=== PATIENT | female | born 1995 | race Caucasian/White ===

== ENCOUNTER 2020-01-16 11:55 | Emergency (ER) | payer MEDICAID, SELFPAY ==
[2020-01-16 11:57] VITALS: BP 136/80; PULSE 80; RESP 18; TEMP 36.4; O2SAT 100; BMI 37.3
--- NOTE | 2020-01-16 12:18 | CT_ITS ---
STUDY: CT ABDOMEN AND PELVIS WITH CONTRAST REASON FOR EXAM: Female, 24 years old. 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 RADIATION DOSAGE (If Supplied By Facility): CTDIvol = ( 17.68 ) mGy, DLP = ( 1136.59 ) mGycm TECHNIQUE: Transaxial images were obtained from the dome of the diaphragm to the symphysis pubis with oral contrast. Oral and amp; IV Gastrografin and amp; 100mL Isovue-300 was administered. Sagittal and coronal images were reconstructed. Individualized dose optimization techniques were used for this CT. COMPARISON: None. FINDINGS: The visualized lung bases are unremarkable. The visualized portions of the heart are within normal limits. Normal liver. Normal gallbladder and extrahepatic biliary system. Normal spleen. Normal pancreas. Normal bilateral adrenal glands. Normal right kidney. Normal left kidney. Normal visualized stomach. Normal small intestine. Nondistended colon. The appendix is visualized and appears normal with lumen partially air-filled. Normal abdominal aorta. Normal inferior vena cava. Normal retroperitoneum. Normal urinary bladder. Normal visualized uterus. There is a 3.5 x 4.4 cm cyst of the right adnexa. Slight amount of free fluid extending to the right lower abdomen, contiguous with the right adnexa. Normal abdominal wall. Normal osseous structures. CT/Abdomen/Pelvis WITH Contrast IMPRESSION: 3.5 x 4.4 cm right ovarian cyst with mild adjacent free fluid. Pelvic ultrasound recommended. Electronically Signed: Gilbert Larry MD (Brooks) at 14:37 EDT , Service support ,
--- NOTE | 2020-01-16 12:27 | ED.DCSUM_ITS ---
- ER Visit Summary Date of Service: 01/16/20 Chief Complaint: Abdominal pain History of Present Illness: The patient is a 24 F who presents with abdominal pain that began approximately 2 hours prior to arrival. Patient states the pain began suddenly. Patient states the pain is over the right lower quadrant area. Patient states the pain is worse with walking and improves with rest. Patient states her pain has improved since she arrived in the emergency department. Patient denies any nausea or vomiting. Patient denies any melena or hematochezia. Patient states she has been having some watery diarrhea over the past 2 days. Patient denies any dysuria or hematuria. Patient states her last menstrual period was 1 week ago and was normal. 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 Physical Examination: Vital signs are stable. Patient is afebrile. Patient is in no acute distress. Oral mucosa is pink and moist. Neck is supple. Trachea is midline. There is no JVD. Heart was regular rate and rhythm. Lungs are clear and equal bilaterally. Abdomen is soft. Bowel sounds are normal. There is lower abdominal tenderness bilaterally. There is no rebound or guarding noted. Cranial nerves II through XII are intact. There are no focal motor or sensory deficits noted. Extremities are intact. There is no calf tenderness or edema. Test Results: CBC, comprehensive metabolic profile, and serum hCG were obtained were all normal. Urinalysis was obtained and was normal. CT scan of the abdomen and pelvis was obtained. There is a 3.5 x 4.4 cm right ovarian cyst with mild adjacent free fluid. Pelvic ultrasound was recommended. This was ordered and is pending. Emergency Department Course and Treatment: Patient was given IV fluids, morphine, and Zofran. Patient was feeling better on reevaluation. Disposition: Care of the patient was turned over to the oncoming physician pending ultrasound results. Impression: 1. Right ovarian cyst This note was generated with [employer] dictation software. It may contain incorrect words, spelling, and punctuation that were not noted in review of the chart prior to signing ED Disposition - Plan for ED Patient: Disposition: Home or Assisted Living Diagnosis: Ovarian cyst Instructions: ED Cyst Ovarian Referrals: BERONICA MORRIS [Other] - 5-7 Days Lorraine Parker DO [STAFF PHYSICIAN] - 3-5 Days
[2020-01-16 12:36] LABS: Absolute Lymphocyte Count 1.48 X10^3/uL (0.83-4.51); Absolute Neutrophil Count 5.7 X10^3/uL (2.0-7.7); Basophil# 0.02 X10^3/uL; Basophil% 0.3 % (0-1); Eosinophil# 0.04 X10^3/uL; Eosinophils% 0.5 % (0-5); Hematocrit 42.4 % (37-47); Hemoglobin 13.6 g/dL (12.0-15.0); Lymphocyte # 1.48 X10^3/ul (4.0); Lymphocyte % 18.9 % (19-41); Mean Corp Hgb Conc 32.1 g/dL (32-36); Mean Corpuscular Hgb 28.2 pg (27.0-32.0); Mean Corpuscular Volume 87.8 fL (81-99); Mean Platelet Vol. 10.6 fl (6.2-12.0); Monocyte# 0.53 X10^3/uL; Monocyte% 6.8 % (0-10); NRBC Flagged by Analyzer 0 % (0-5); Neutrophil # 5.74 X10^3/uL (2.7-7.7); Platelet Count 259 K/mm3 (150-450); RBC Distribution Width CV 12.9 % (11.6-14.6); RBC Distribution Width SD 41.8 fl (35.1-43.9); Red Blood Count 4.83 M/mm3 (4.2-5.4); White Blood Count 7.9 K/mm3 (4.4-11.0)
[2020-01-16] MEDS: 0.9% Normal Saline 1,000 ML 1000 ML IV (12:41)
[2020-01-16] MEDS: Morphine 4 MG/ML Syringe IV (12:41)
[2020-01-16] MEDS: Ondansetron 4 MG/2 ML Vial IV (12:51)
[2020-01-16 12:54] LABS: ALB/GLOB Ratio 1.1 RATIO (0.9-2.4); AST(SGOT) 11 U/L (15-37); Alanine Aminotransfer ALT/SGPT 19 U/L (13-56); Albumin, Serum 4.3 g/dL (3.2-5.0); Alkaline Phosphatase 60 U/L (45-117); Anion Gap 5 (5-15); BUN 10 mg/dL (7-18); BUN/Creat Ratio 12.5 RATIO (10-20); Calcium,Total 9.1 mg/dL (8.5-10.1); Chloride 106 mmol/L (98-107); EST Glomerular Filtration Rate 94 mL/min (>60); Est Glom Filt Rate - Afr Amer 114 mL/min (>60); Estimated Creatinine Clearance 90.47 ml/min; Globulin 3.9 g/dL (2.2-4.2); Glucose 96 mg/dL (74-106); Potassium 3.9 mmol/L (3.5-5.1); Protein, Total 8.2 g/dL (6.4-8.2); Sodium Level 138 mmol/L (136-145)
[2020-01-16 13:04] LABS: Internal QC Validated? YES +Cl - CLEAR BKGD; Pregnancy, Serum, hCG Quali. NEGATIVE Negative
[2020-01-16 13:23] LABS: Bacteria 0 SEEN /hpf (None Seen); Mucous, Urine 0 SEEN /hpf (<or=2+); Red Blood Cells-Urine 0 SEEN /hpf (0-5); Squamous Epithelial Cells - UA 0 SEEN /hpf (5-10); White Blood Cells 0 SEEN /hpf (0-5)
[2020-01-16 13:27] LABS: Color, Urine Yellow (Yellow); Glucose, Dipstick Normal (Normal); Ketone-Dipstick Negative (Negative); Leukocyte Esterase-Dipstick Negative /ul (Negative); Nitrite-Dipstick Negative (Negative); Occult Blood-Urine Negative /ul (Negative); Protein-Dipstick Negative (Negative); Urine Bilirubin Dipstick Negative (Negative); Urine Clarity Sl. Cloudy (Clear); Urine Urobilinogen Normal (Normal)
[2020-01-16 14:23] VITALS: RESP 16
--- NOTE | 2020-01-16 14:34 | US_ITS ---
STUDY: ULTRASOUND OF THE FEMALE PELVIS - COMPLETE REASON FOR EXAM: Female, 24 years old. PAIN , ABNL CT LMP: 01/03/2020 TECHNIQUE: Transabdominal and Transvaginal TECHNICAL QUALITY: Adequate. COMPARISON: CT from earlier today FINDINGS: The uterus is anteverted and is in a midline position. The uterus measures 9.5 x 5.5 x 4.5 cm. Normal uterine cervix. The endometrium measures 8 mm in thickness, and is hyperechoic. There is no demonstrated endometrial mass. There is no demonstrated myometrial mass. I.U.D. - The patient does not have an I.U.D. The right ovary is visualized. The right ovary measures 6.5 x 5.0 x 3.7 cm. Hypoechoic cyst of the right ovary measures 3.1 x 3.6 x 2.5 cm There is no visualized right adnexal mass or complex lesion. There is normal arterial and normal venous vascularity. The left ovary is visualized. The left ovary measures 2.3 x 2.4 x 2.4 cm. There is no left ovarian cyst or ovarian mass. There is no visualized left adnexal mass or complex lesion. There is normal arterial and normal venous vascularity. There is minimal fluid in the cul-de-sac. Visualized urinary bladder is unremarkable. US/Transvaginal Non- IMPRESSION: 1. No sonographic evidence of ovarian torsion. 3.6 cm right hypoechoic cyst likely represents a hemorrhagic cyst. Trace pelvic free fluid. Electronically Signed: Gilbert Larry MD (Brooks) at 15:45 EDT , Service support ,
--- NOTE | 2020-01-16 16:01 | ED.DCSUM_ITS ---
- ER Visit Summary Date of Service: 01/16/20 The patient was checked out to me with a pelvic ultrasound pending. Test Results: Clinical Impression(s) from Imaging Studies Abdomen/Pelvis CT 01/16/20 12:18 IMPRESSION: 3.5 x 4.4 cm right ovarian cyst with mild adjacent free fluid. Pelvic ultrasound recommended. Electronically Signed: Gilbert Larry MD (Brooks) at 14:37 EDT , Service support , Transvaginal US 01/16/20 14:34 IMPRESSION: 1. No sonographic evidence of ovarian torsion. 3.6 cm right hypoechoic cyst likely represents a hemorrhagic cyst. Trace pelvic free fluid. Electronically Signed: Gilbert Larry MD (Brooks) at 15:45 EDT , Service support , Emergency Department Course and Treatment: Hemoglobin is normal. The patient is resting comfortably. I feel that she is a suitable candidate for outpatient follow-up. Treatment Plan: Patient be discharged instructions follow-up with Dr. Lorraine Parker in 3 to 5 days. Return to the emergency department for any worsening symptoms. Disposition: To home in improved and stable condition. Impression: 1. Right ovarian cyst. This note was generated with [employer] software. It may contain incorrect words, spelling, and punctuation that were not noted in review of the chart prior to signing ED Disposition - Plan for ED Patient: Disposition: Home or Assisted Living Diagnosis: Ovarian cyst Instructions: ED Cyst Ovarian Referrals: BERONICA MORRIS [Other] - 5-7 Days Lorraine Parker DO [STAFF PHYSICIAN] - 3-5 Days
== END 2020-01-16 16:16 | disposition home or self-care (01) ==
PROVIDERS: Emergency Provider Emergency Medicine
DX: N83.201 Unspecified ovarian cyst, right side (principal)
CPT/HCPCS: 74177; 76830; 80053; 81001; 84703; 85025; 93976; 96361; 96374; 96375; 99283; J7030; Q9967; A4216; J2405

== ENCOUNTER 2020-07-07 18:44 | Emergency (ER) | payer MEDICAID, SELFPAY ==
[2020-07-07 18:45] VITALS: BP 124/72; PULSE 78; RESP 15; TEMP 36.4; O2SAT 100; BMI 35.6
--- NOTE | 2020-07-07 18:53 | CT_ITS ---
INDICATION: llq pain EXAMINATION: CT ABDOMEN AND PELVIS WITH CONTRAST - CT Abdomen And Pelvis W/ Contrast Injection TECHNIQUE: Helically acquired images were obtained of the abdomen and pelvis following IV contrast. A radiation dose optimization technique was used for this scan. IV Contrast dosage and agent: Oral contrast: None. COMPARISON: 01/16/2020 FINDINGS: LOWER CHEST: Lung bases are clear. No cardiomegaly or pericardial effusion. LIVER: Homogeneous. No focal mass. GALLBLADDER AND BILIARY TREE: No calcified gallstones. Contracted thick-walled possibly physiologic.. No intra- or extrahepatic biliary ductal dilation. PANCREAS: No focal cystic or solid mass. SPLEEN: Normal size without focal cystic or solid mass. ADRENAL GLANDS: No nodules. KIDNEYS AND URETERS: Normal renal size and position. No hydronephrosis. PERITONEUM: No ascites or free air. No other fluid collection. BOWEL: No evidence of acute appendicitis. No evidence for small bowel obstruction. Diffusely a haustral descending colon of indeterminate etiology possibly on the basis of old inflammatory disease however clinical correlation is recommended No focal inflammatory change. LYMPH NODES: No enlarged mesenteric or retroperitoneal lymph nodes. VESSELS: Aorta is non-dilated. URINARY BLADDER: Incompletely distended thick-walled bladder likely of no significance. REPRODUCTIVE ORGANS: No pelvic masses. ABDOMINAL WALL: No discrete abdominal or pelvic wall hernia. BONES: No lytic or blastic abnormality. CT/Abdomen/Pelvis W IV Cont ONLY IMPRESSION: Contracted thick-walled gallbladder without calcified stones likely physiologic.. Diffusely a haustral descending colon without stranding in the fat possibly on the basis of old inflammatory bowel disease however clinical correlation is recommended. Electronically Signed: Alexis Tse MD at 21:04 EDT , Service support ,
--- NOTE | 2020-07-07 18:55 | ED.DCSUM_ITS ---
History of Present Illness Chief Complaint: Chest Pain Informant: Patient Onset: Days Context: Gradual Onset Timing: Intermittent Current Severity: Moderate Maximum Severity: Moderate Narrative: Patient is a 24-year-old female medical history significant for prior ovarian cyst that presents to the emergency department with multiple complaints. Patient states over the past few days, she has had intermittent pain in her left lower quadrant. She states today she was at work and lifting, the pain got acutely worse. She states that she was mildly nauseated. She states also for the past week, she has been having intermittent heart pain. She states sometimes, she will feel short of breath. She denies fever. She denies chills or sweats. She denies any other systemic complaints. She denies vaginal bleeding or transfer . She has had prior cystoscopy for ovarian cyst. Prior similar symptoms: Yes Recent Illness/Hospitalization: No Past Medical History - Allergies and Home Meds Allergies/Adverse Reactions: Allergies No Known Allergies Allergy (Verified 07/07/20 18:46) Primary Care Physician: David Wilks MD [STAFF PHYSICIAN] - Prior records reviewed: Yes Past Medical History: - - Prior ovarian cyst Surgical History: noncontributory Smoking Status: Never smoker Review of Systems General: Denies: Chills, Fever, Sweats Eyes: Denies: Visual changes - bilaterally, Diplopia ENT: Denies: Rhinorrhea, Sore throat Cardiovascular: Denies: Chest pain, Palpitations Respiratory: Denies: Dyspnea, Cough, Dyspnea on exertion Gastrointestinal: Reports: Nausea. Denies: Abdominal pain, Vomiting, Diarrhea, Melena, Hematochezia Genitourinary: Denies: Dysuria, Hematuria, Frequency Musculoskeletal: Denies: Back pain, Extremity Pain Skin: Denies: Rash, Wounds Neurological: Denies: Headache, Weakness, Numbness Physical Exam Vital Signs/Narrative: Vital Signs Temp Pulse Resp BP Pulse Ox 07/07/20 18:45 97.6 F L 78 15 124/72 H 100 Inital Vital Signs reviewed: Yes General: Well nourished, Well developed, No Acute Distress Head: Normocephalic, Atraumatic Eyes: Perrl, EOMI ENT: Moist mucous membranes, No rhinorrhea Neck: Supple, Nontender Cardiovascular: Regular rate, Regular rhythm, No murmurs Respiratory: No distress, CTA bilaterally, Chest nontender Abdomen: Soft, Nontender, Nondistended, Normal bowel sounds Back: Nontender, Normal Inspection Extremities: Nontender, No edema Skin: Normal color, No rash Neurological: Alert, Oriented x3, Cranial nerves II-XII grossly intact, Normal Strength, Normal Sensation Psychological: Normal affect, Normal Mood Diagnostic/Tx/Re-eval Abnormal Lab Results 07/07/20 07/07/20 07/07/20 19:15 19:15 19:15 WBC 7.8 RBC 4.78 Hgb 13.7 Hct 43.1 MCV 90.2 MCH 28.7 MCHC 31.8 L RDW Std Deviation 43.3 RDW Coeff of Marek 13.1 Plt Count 283 MPV 11.0 Immature Gran % (Auto) 0.300 Neut % (Auto) 61.6 Lymph % (Auto) 30.0 [place] % (Auto) 6.7 Eos % (Auto) 1.0 Baso % (Auto) 0.4 Absolute Neuts (auto) 4.8 Absolute Lymphs (auto) 2.33 Nucleated RBC % 0 Sodium 140 Potassium 3.4 L Chloride 107 Carbon Dioxide 28.0 Anion Gap 5 BUN 16 Creatinine 0.79 Estim Creat Clear Calc 95.64 Est GFR (MDRD) Af Amer 116 Est GFR (MDRD) Non-Af 96 BUN/Creatinine Ratio 20.4 H Glucose 81 Calcium 9.3 Total Bilirubin 0.50 AST 14 L ALT 24 Alkaline Phosphatase 58 Total Protein 8.4 H Albumin 4.4 Globulin 4.0 Albumin/Globulin Ratio 1.1 Lipase 74 Serum , Qual NEGATIVE Urine Color Urine Clarity Urine pH Ur Specific [place] Urine Protein Urine Glucose (UA) Urine Ketones Urine Occult Blood Urine Nitrite Urine Bilirubin Urine Urobilinogen Ur Leukocyte Esterase Urine RBC Urine WBC Ur Squamous Epith Cells Amorphous Sediment Urine Bacteria Urine Mucus 07/07/20 19:15 WBC RBC Hgb Hct MCV MCH MCHC RDW Std Deviation RDW Coeff of Marek Plt Count MPV Immature Gran % (Auto) Neut % (Auto) Lymph % (Auto) [place] % (Auto) Eos % (Auto) Baso % (Auto) Absolute Neuts (auto) Absolute Lymphs (auto) Nucleated RBC % Sodium Potassium Chloride Carbon Dioxide Anion Gap BUN Creatinine Estim Creat Clear Calc Est GFR (MDRD) Af Amer Est GFR (MDRD) Non-Af BUN/Creatinine Ratio Glucose Calcium Total Bilirubin AST ALT Alkaline Phosphatase Total Protein Albumin Globulin Albumin/Globulin Ratio Lipase Serum , Qual Urine Color Yellow Urine Clarity Clear Urine pH 7.0 Ur Specific [place] 1.015 Urine Protein Negative Urine Glucose (UA) Normal Urine Ketones 50 H Urine Occult Blood Negative Urine Nitrite Negative Urine Bilirubin Negative Urine Urobilinogen 1 H Ur Leukocyte Esterase Negative Urine RBC 0 SEEN Urine WBC 0 SEEN Ur Squamous Epith Cells 0-5 SEEN Amorphous Sediment 1+ PHOS Urine Bacteria 0 SEEN Urine Mucus 0 SEEN Clinical Impression(s) from Imaging Studies Abdomen/Pelvis CT 07/07/20 18:53 IMPRESSION: Contracted thick-walled gallbladder without calcified stones likely physiologic.. Diffusely a haustral descending colon without stranding in the fat possibly on the basis of old inflammatory bowel disease however clinical correlation is recommended. Electronically Signed: Alexis Tse MD at 21:04 EDT , Service support , - Rhythm Strip Rhythm Strip: Sinus Rhythm Rate: 80 Ectopy: None - EKG Initial EKG Interpretation: Sinus Rhythm, No Acute Injury Pattern Prior: Unchanged - Medical Decision Making The patient presents with abdominal cramping, pain in the left lower quadrant that waxes and wanes, along with intermittent chest pain and nausea. Broad metabolic work-up was pursued. EKG was obtained. Was sinus rhythm without acute ischemia. Labs were obtained were unremarkable. Urine shows no evidence of infection. The patient underwent CT imaging. This was reviewed by myself and the radiologist. CT shows some questionable inflammation of the descending colon. The patient has had some diarrhea with abdominal cramping. Patient was given fluids, Zofran, and Toradol. She is resting comfortably. At this point, with her cramping and mild inflammation on CT, will treat with 3 days of Cipro. The patient also reports that she had a near syncopal episode at work last week and has been complaining of palpitations. She will be given outpatient cardiology follow-up. She was counseled on outpatient follow-up and reasons to return. She will be discharged home. Impression 1. Abdominal cramping ED Disposition - Plan for ED Patient: Instructions: ED Chest Pain, Noncardiac, ED Gastroenteritis, Bacterial (Adult) Prescriptions: Dicyclomine HCl [Bentyl] 20 mg PO TIDAC #20 capsule Prescription Printed Ciprofloxacin [Cipro] 500 mg PO BID #6 tab Prescription Printed Referrals: David Wilks MD [STAFF PHYSICIAN] -
--- NOTE | 2020-07-07 18:55 | EKG12_ITS ---
Test Reason : CP Blood Pressure : / mmHG Vent. Rate : 067 BPM Atrial Rate : 067 BPM P-R Int : 118 ms QRS Dur : 086 ms QT Int : 416 ms P-R-T Axes : 017 060 008 degrees QTc Int : 439 ms Normal sinus rhythm Normal ECG Confirmed by ANURAG ROCHA, HUGO ([id number]), mapping editor SUNNY HODGSON ([id number]) on 07/10/2020 10:36:28 A M Referred By: SIMEON Confirmed By:BERNADINE OSBORN MD
--- NOTE | 2020-07-07 18:58 | ED.RN ---
NO OLDS EKGS IN MUSE
[2020-07-07] MEDS: Ondansetron 4 MG/2 ML Vial IV (19:15)
[2020-07-07] MEDS: 0.9% Normal Saline 1,000 ML 1000 ML IV (19:15)
[2020-07-07 19:26] LABS: Bacteria 0 SEEN /hpf (None Seen); Mucous, Urine 0 SEEN /hpf (<or=2+); Red Blood Cells-Urine 0 SEEN /hpf (0-5); White Blood Cells 0 SEEN /hpf (0-5)
[2020-07-07 19:27] LABS: Color, Urine Yellow (Yellow); Glucose, Dipstick Normal (Normal); Ketone-Dipstick 50 mg/dl (Negative); Leukocyte Esterase-Dipstick Negative /ul (Negative); Nitrite-Dipstick Negative (Negative); Occult Blood-Urine Negative /ul (Negative); Protein-Dipstick Negative (Negative); Specific Gravity, Urine 1.015 (1.002-1.030); Urine Bilirubin Dipstick Negative (Negative); Urine Clarity Clear (Clear); Urine Urobilinogen 1 mg/dl (Normal)
[2020-07-07 19:30] LABS: Absolute Lymphocyte Count 2.33 X10^3/uL (0.83-4.51); Absolute Neutrophil Count 4.8 X10^3/uL (2.0-7.7); Basophil# 0.03 X10^3/uL; Basophil% 0.4 % (0-1); Eosinophil# 0.08 X10^3/uL; Hematocrit 43.1 % (37-47); Hemoglobin 13.7 g/dL (12.0-15.0); Lymphocyte # 2.33 X10^3/ul (4.0); Mean Corp Hgb Conc 31.8 g/dL (32-36); Mean Corpuscular Hgb 28.7 pg (27.0-32.0); Mean Corpuscular Volume 90.2 fL (81-99); Monocyte# 0.52 X10^3/uL; Monocyte% 6.7 % (0-10); NRBC Flagged by Analyzer 0 % (0-5); Neutrophil # 4.78 X10^3/uL (2.7-7.7); Neutrophil % 61.6 % (47-70); Platelet Count 283 K/mm3 (150-450); RBC Distribution Width CV 13.1 % (11.6-14.6); RBC Distribution Width SD 43.3 fl (35.1-43.9); Red Blood Count 4.78 M/mm3 (4.2-5.4); White Blood Count 7.8 K/mm3 (4.4-11.0)
[2020-07-07 19:46] LABS: Internal QC Validated? YES +Cl - CLEAR BKGD; Pregnancy, Serum, hCG Quali. NEGATIVE Negative
[2020-07-07 19:52] LABS: ALB/GLOB Ratio 1.1 RATIO (0.9-2.4); AST(SGOT) 14 U/L (15-37); Alanine Aminotransfer ALT/SGPT 24 U/L (13-56); Albumin, Serum 4.4 g/dL (3.2-5.0); Alkaline Phosphatase 58 U/L (45-117); Anion Gap 5 (5-15); BUN 16 mg/dL (7-18); BUN/Creat Ratio 20.4 RATIO (10-20); Calcium,Total 9.3 mg/dL (8.5-10.1); Chloride 107 mmol/L (98-107); Creatinine, Serum 0.79 mg/dL (0.55-1.02); EST Glomerular Filtration Rate 96 mL/min (>60); Est Glom Filt Rate - Afr Amer 116 mL/min (>60); Estimated Creatinine Clearance 95.64 ml/min; Glucose 81 mg/dL (74-106); Lipase 74 U/L (73-393); Potassium 3.4 mmol/L (3.5-5.1); Protein, Total 8.4 g/dL (6.4-8.2); Sodium Level 140 mmol/L (136-145)
[2020-07-07] MEDS: Ketorolac 30 MG/ML Syringe IV (19:52)
[2020-07-07 20:09] LABS: Amorphous Sediment 1+ PHOS; Squamous Epithelial Cells - UA 0-5 SEEN /hpf (5-10)
[2020-07-07 21:05] VITALS: RESP 14
[2020-07-07 21:14] VITALS: PULSE 78; RESP 16; O2SAT 98
== END 2020-07-07 21:15 | disposition home or self-care (01) ==
PROVIDERS: Emergency Provider Emergency Medicine
DX: R10.32 Left lower quadrant pain (principal)
CPT/HCPCS: 74177; 80053; 81001; 83690; 84703; 85025; 93005; 96361; 96374; 96375; 99283; J7030; Q9967; A4216; J2405

== ENCOUNTER 2020-07-10 09:56 | Emergency (ER) | payer MEDICAID, SELFPAY ==
[2020-07-10 09:57] VITALS: BP 130/94; PULSE 65; RESP 16; TEMP 35.3; O2SAT 97; BMI 37.0
[2020-07-10] MEDS: Ketorolac 15 MG/ML Vial IV (10:25)
[2020-07-10] MEDS: Ondansetron 4 MG/2 ML Vial IV (10:25)
[2020-07-10] MEDS: 0.9% Normal Saline 1,000 ML 1000 ML IV (10:27)
[2020-07-10 10:39] LABS: Absolute Lymphocyte Count 1.55 X10^3/uL (0.83-4.51); Absolute Neutrophil Count 3.8 X10^3/uL (2.0-7.7); Basophil# 0.02 X10^3/uL; Basophil% 0.3 % (0-1); Eosinophil# 0.07 X10^3/uL; Eosinophils% 1.2 % (0-5); Hemoglobin 13.5 g/dL (12.0-15.0); Lymphocyte # 1.55 X10^3/ul (4.0); Lymphocyte % 26.5 % (19-41); Mean Corp Hgb Conc 31.4 g/dL (32-36); Mean Corpuscular Hgb 28.6 pg (27.0-32.0); Mean Corpuscular Volume 91.1 fL (81-99); Mean Platelet Vol. 10.7 fl (6.2-12.0); Monocyte# 0.37 X10^3/uL; Monocyte% 6.3 % (0-10); NRBC Flagged by Analyzer 0 % (0-5); Neutrophil # 3.82 X10^3/uL (2.7-7.7); Neutrophil % 65.5 % (47-70); Platelet Count 250 K/mm3 (150-450); RBC Distribution Width CV 13.2 % (11.6-14.6); Red Blood Count 4.72 M/mm3 (4.2-5.4); White Blood Count 5.8 K/mm3 (4.4-11.0)
[2020-07-10 10:57] LABS: ALB/GLOB Ratio 1.1 RATIO (0.9-2.4); AST(SGOT) 15 U/L (15-37); Alanine Aminotransfer ALT/SGPT 22 U/L (13-56); Albumin, Serum 4.3 g/dL (3.2-5.0); Alkaline Phosphatase 57 U/L (45-117); Anion Gap 4 (5-15); BUN 10 mg/dL (7-18); BUN/Creat Ratio 11.9 RATIO (10-20); Calcium,Total 9.4 mg/dL (8.5-10.1); Chloride 109 mmol/L (98-107); Creatinine, Serum 0.84 mg/dL (0.55-1.02); EST Glomerular Filtration Rate 88 mL/min (>60); Est Glom Filt Rate - Afr Amer 107 mL/min (>60); Estimated Creatinine Clearance 86.16 ml/min; Globulin 3.8 g/dL (2.2-4.2); Glucose 93 mg/dL (74-106); Lipase 61 U/L (73-393); Potassium 3.7 mmol/L (3.5-5.1); Protein, Total 8.1 g/dL (6.4-8.2); Sodium Level 140 mmol/L (136-145)
--- NOTE | 2020-07-10 11:11 | ED.DCSUM_ITS ---
- ER Visit Summary Date of Service: 07/10/20 Chief Complaint: Abdominal pain History of Present Illness: The patient is a [address] Morris. 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 She is never had a colonoscopy or endoscopy. She reports she is listed abdominal pain began 1 to 2 weeks ago. Is a sharp, aching pain that started 10 at worst and 710 currently. Is worsened by food and relieved by nothing. She denies nausea or vomiting. She has had one episode of diarrhea yesterday. No blood in her stools or black tarry stools. No dysuria or frequency. Patient's last menstrual period was 5 days ago. She denies any vaginal bleeding or discharge. Patient reports that she was seen in the [facility] department 3 days ago and placed on 3 days of Cipro. She has 1 dose left and is concerned that she needs more antibiotics. Physical Examination: Vitals: Stable. Afebrile. General: Well-nourished and well-developed. Head: Normocephalic atraumatic. Neck: Supple, no lymphadenopathy. No JVD. Nontender. Cardiovascular: Regular rate and rhythm. No murmurs. Respiratory: No respiratory distress. Clear to auscultation bilaterally. Abdominal: Soft, mild tenderness palpation of the left upper quadrant, nondistended, normal bowel sounds. No guarding, rebound, or peritoneal signs. Back: Mild left CVA tenderness. Extremities: Nontender, no edema. Skin: Normal color, no rash. Neurologic: Alert and oriented ?3. Cranial nerves II through XII are intact. Normal strength and sensation. Psych: Normal affect. Test Results: CBC is normal. Chem-7 shows a chloride of 109. LFTs are normal. Lipase is 61. Urinalysis shows leukocyte Estrace. Emergency Department Course and Treatment: Patient had an IV placed. She is given Toradol and Zofran IV. She is resting comfortably. Reviewed the CAT scan from 3 days ago. It shows loss of how struck in her descending colon and raises the possibility of old inflammatory bowel disease. Patient denies any diagnosis of inflammatory bowel disease. She does report she has irritable bowel disease. She denies any family history of Crohn's or ulcerative colitis. Treatment Plan: At this point I do not think the patient needs further antibio tics. She will be given a prescription for Bentyl and Zofran. However, I do think that she should follow up to have a colonoscopy. She is given the name of Dr. Culver who is on-call. Instructed to follow-up with her primary care physician Dr. Morris in 3 to 5 days if not improving. Return to the emergency department for any worsening symptoms. Disposition: To home in improved and stable condition. Impression: 1. Abdominal pain, uncertain cause. This note was generated with [employer] dictation software. It may contain incorrect words, spelling, and punctuation that were not noted in review of the chart prior to signing ED Disposition - Plan for ED Patient: Instructions: ED Abdominal Pain Unkn Cause Fem Prescriptions: Dicyclomine HCl [Bentyl] 20 mg PO TIDAC #20 capsule Ondansetron [Zofran Odt] 4 mg PO Q8H PRN PRN #10 tablet PRN Reason: Nausea Referrals: BERONICA MORRIS [Other] - 3-5 Days Romie Culver MD [STAFF PHYSICIAN] - 1-2 Weeks
[2020-07-10 11:17] LABS: Bacteria 0 SEEN /hpf (None Seen); Red Blood Cells-Urine 0 SEEN /hpf (0-5)
[2020-07-10 11:18] LABS: Color, Urine Yellow (Yellow); Glucose, Dipstick Normal (Normal); Ketone-Dipstick Negative (Negative); Leukocyte Esterase-Dipstick 25 /ul (Negative); Nitrite-Dipstick Negative (Negative); Occult Blood-Urine Negative /ul (Negative); Protein-Dipstick Negative (Negative); Specific Gravity, Urine 1.015 (1.002-1.030); Urine Bilirubin Dipstick Negative (Negative); Urine Clarity Clear (Clear); Urine Urobilinogen Normal (Normal); Urine pH 6.5 (5.0 - 8.0)
[2020-07-10 11:25] LABS: Mucous, Urine 1+ /hpf (<or=2+); Squamous Epithelial Cells - UA 0-5 SEEN /hpf (5-10); White Blood Cells 0-5 SEEN /hpf (0-5)
[2020-07-10 11:35] VITALS: BP 95/61; PULSE 59; RESP 16
== END 2020-07-10 11:37 | disposition home or self-care (01) ==
LOC: ED 10:43
PROVIDERS: Emergency Provider Emergency Medicine
DX: R10.9 Unspecified abdominal pain (principal); M54.9 Dorsalgia, unspecified; R19.7 Diarrhea, unspecified; M79.7 Fibromyalgia
CPT/HCPCS: 80053; 81001; 83690; 85025; 99283; J7030; A4216; J2405

== ENCOUNTER 2020-11-20 11:38 | Emergency (ER) | payer MEDICAID, SELFPAY ==
[2020-11-20 11:39] VITALS: BP 137/96; PULSE 81; RESP 16; TEMP 36.4; O2SAT 100; BMI 35.7
--- NOTE | 2020-11-20 12:03 | CT_ITS ---
EXAM DESCRIPTION: CT scan of the abdomen and pelvis CLINICAL HISTORY: 25 years Female, blood in stool COMPARISON: Previous CT scan of the abdomen and pelvis obtained on 07/07/2020 TECHNIQUE: A CT scan of the abdomen and pelvis was performed initially without than with IV contrast contrast administration. Oral contrast was also administered. Coronal and sagittal reconstruction images were reviewed. This exam was performed according to our departmental dose-optimization program, which includes automated exposure control, adjustment of the mA and/or kV according to patient size and/or use of iterative reconstruction technique. FINDINGS: The lung bases and the base of the heart are normal. The liver is normal.The spleen is normal.The adrenal glands are normal.The head, body, and tail of the pancreas are normal. The right and left kidneys were examined and appear to be normal. Both ureters appear to be normal, and no obstructive uropathy is identified. The abdominal aortal is normal along its course and distribution. No paraortic lymphadenopathy is seen. No abdominal masses or lesions are seen. The CT scan of the pelvis was then reviewed. The common iliac vessels, external iliac vessels, and common femoral vessels are normal along their course and distribution No pelvis masses or lesions are seen. The appendix is normal. No pericecal inflammatory reaction is seen. Bone scanning windows of the lumbar spine and pelvis were reviewed in the coronal and sagittal planes and appear to be normal. CT/Abdomen/Pelvis W IV Cont ONLY IMPRESSION: Normal CT scan of the abdomen and pelvis. Electronically Signed: Chau Stockton DO at 13:49 EDT Tel , Service support ,
--- NOTE | 2020-11-20 12:04 | ED.VIS.GI ---
HPI HPI - GI History of Present Illness Chief Complaint: GI Bleed Informant: patient Narrative Narrative: Patient presents with rectal bleeding today. This patient has not had any significant rectal bleeding in the past. However, she states she has had stomach and GI issues her whole life. When she is researched online she think she likely has Crohn's disease. No family history of Crohn's but she does not know a lot of her family members. She had an episode of abdominal cramping back earlier this year. Was seen a couple times for that. Diagnosed with a nonspecific colitis. She had been on antibiotics for short period of time. She did have a follow-up colonoscopy about 2 months ago. However, in between her initial visit and the colonoscopy she went on a gluten-free diet. This did seem to help her symptoms. Since her colonoscopy was normal, she went off the gluten-free diet and the symptoms do seem to have increased. However, the bleeding is still new. Only abdominal surgery is cystoscopy. No new medications. For the last month or so she is also been having intermittent nausea. She has not had vomiting for over 2 days. She is not sure if she is lost weight. No specific food seems to bother her but she does seem to have a lot of GI upset with eating. PFSH PFSH Home Medications glycopyrrolate 1 mg PO TID 11/20/20 [History Last Taken Unknown] sumatriptan succinate 50 mg PO Q2H PRN 11/20/20 [History Last Taken Unknown] Allergy/AdvReac Type Severity Reaction Status Date / Time No Known Allergies Allergy Verified 11/20/20 11:38 Surgical History H/O partial cystectomy Social History Smoking Status: Never smoker ROS ROS ED Constitutional Constitutional ED: Denies chills, fever(s) or sweats ENT ENT ED: Denies sore throat Cardiovascular Cardiovascular: Denies chest pain Respiratory/Chest Respiratory/Chest: Denies cough or dyspnea Gastrointestinal Gastrointestinal: Reports abdominal pain, diarrhea, nausea, vomiting and other Details: See history of present illness. ; Denies melena Genitourinary Genitourinary ED: Denies dysuria or hematuria Musculoskeletal Musculoskeletal: Denies arthralgias, back pain or myalgias Integumentary Denies rash Neurologic Neurologic: Denies headache(s) Hematologic/Lymphatic Hematologic/Lymphatic: Denies easy bleeding or easy bruising EXAM Physical Exam Const Vital Signs: 11/20/20 11:39 Temperature 97.5 F L Temperature Source Temporal Pulse Rate 81 Respiratory Rate 16 Blood Pressure 137/96 H Blood Pressure Mean 109 Pulse Ox 100 Oxygen Delivery Method Room Air Positive well nourished and well developed General Appearance ED: well developed HEENT Reports moist mucous membranes normocephalic and atraumatic Eyes General Eye ED: Negative for pale conjunctiva or scleral icterus Neck supple Resp normal respiratory effort and clear to auscultation bilaterally Cardio regular rate, regular rhythm and no murmurs GI non-tender and non-distended Auscultation: normoactive bowel sounds Palpation: soft Back/Spine no CVA tenderness Extremity full ROM General Extremety ED: Negative for edema General Extremity: Negative for edema Neuro Sensorium / Orientation: alert Psych mental status grossly normal Skin Lesions: no lesions Rashes: no rashes MDM MDM MDM Narrative Medical decision making narrative: Patient is blood work including CBC with hemoglobin electrolytes liver function test are negative. CT scan does not show any acute process this time. I did rectal exam with Angeline RN in attendance. There is a small skin tag at the 6 o'clock position. There is no active bleeding though. No mass. No sign of infection. I think the patient is okay to go home. She will follow up with GI. Lab Data Attestation: I reviewed the patient's lab results. Labs: Laboratory Results - last 24 hr 11/20/20 11/20/20 11/20/20 12:16 12:16 12:16 WBC 5.6 RBC 4.34 Hgb 12.3 Hct 39.3 MCV 90.6 MCH 28.3 MCHC 31.3 L RDW Std Deviation 42.1 RDW Coeff of Marek 12.7 Plt Count 242 MPV 10.6 Immature Gran % (Auto) 0.400 Neut % (Auto) 65.2 Lymph % (Auto) 25.4 [place] % (Auto) 7.4 Eos % (Auto) 1.1 Baso % (Auto) 0.5 Absolute Neuts (auto) 3.6 Absolute Lymphs (auto) 1.41 Nucleated RBC % 0 Sodium 138 Potassium 3.6 Chloride 107 Carbon Dioxide 27.0 Anion Gap 4 L BUN 8 Creatinine 0.60 Estim Creat Clear Calc 119.60 Est GFR (MDRD) Af Amer 159 Est GFR (MDRD) Non-Af 132 BUN/Creatinine Ratio 13.4 Glucose 88 Calcium 8.7 Total Bilirubin 0.50 AST 12 L ALT 18 Alkaline Phosphatase 49 Total Protein 7.2 Albumin 3.9 Globulin 3.3 Albumin/Globulin Ratio 1.2 Serum , Qual NEGATIVE Radiography Diagnostic Testing: Radiology Impression Abdomen/Pelvis CT 11/20/20 12:03 IMPRESSION: Normal CT scan of the abdomen and pelvis. Electronically Signed: Chau Stockton DO at 13:49 EDT Tel , Service support , Discharge Plan Triage Chief Complaint: GI Bleed ED Provider: Rayray Jc Dx/Rx/DC Orders Clinical Impression: Rectal bleeding Instructions: ED Lower GI Bleeding (Stable) Prescriptions: No Action glycopyrrolate 1 mg Tablet 1 mg PO TID RF: 0 sumatriptan succinate 50 mg Tablet 50 mg PO Q2H PRN (Reason: Migraine Headache) RF: 0 Referrals: BERONICA MORRIS [Other] - 3-5 Days Disposition Disposition: Home, Self Care
[2020-11-20] MEDS: 0.9% Normal Saline 1,000 ML 500 ML IV (12:18)
[2020-11-20 12:23] LABS: Absolute Lymphocyte Count 1.41 X10^3/uL (0.83-4.51); Absolute Neutrophil Count 3.6 X10^3/uL (2.0-7.7); Basophil# 0.03 X10^3/uL; Basophil% 0.5 % (0-1); Eosinophil# 0.06 X10^3/uL; Eosinophils% 1.1 % (0-5); Hematocrit 39.3 % (37-47); Hemoglobin 12.3 g/dL (12.0-15.0); Lymphocyte # 1.41 X10^3/ul (0.83-4.51); Lymphocyte % 25.4 % (19-41); Mean Corp Hgb Conc 31.3 g/dL (32-36); Mean Corpuscular Hgb 28.3 pg (27.0-32.0); Mean Corpuscular Volume 90.6 fL (81-99); Mean Platelet Vol. 10.6 fl (6.2-12.0); Monocyte# 0.41 X10^3/uL; Monocyte% 7.4 % (0-10); NRBC Flagged by Analyzer 0 % (0-5); Neutrophil # 3.62 X10^3/uL (2.7-7.7); Neutrophil % 65.2 % (47-70); Platelet Count 242 K/mm3 (150-450); RBC Distribution Width CV 12.7 % (11.6-14.6); RBC Distribution Width SD 42.1 fl (35.1-43.9); Red Blood Count 4.34 M/mm3 (4.2-5.4); White Blood Count 5.6 K/mm3 (4.4-11.0)
[2020-11-20 12:38] LABS: ALB/GLOB Ratio 1.2 RATIO (0.9-2.4); AST(SGOT) 12 U/L (15-37); Alanine Aminotransfer ALT/SGPT 18 U/L (13-56); Albumin, Serum 3.9 g/dL (3.2-5.0); Alkaline Phosphatase 49 U/L (45-117); Anion Gap 4 (5-15); BUN 8 mg/dL (7-18); BUN/Creat Ratio 13.4 RATIO (10-20); Calcium,Total 8.7 mg/dL (8.5-10.1); Chloride 107 mmol/L (98-107); EST Glomerular Filtration Rate 132 mL/min (>60); Est Glom Filt Rate - Afr Amer 159 mL/min (>60); Globulin 3.3 g/dL (2.2-4.2); Glucose 88 mg/dL (74-106); Potassium 3.6 mmol/L (3.5-5.1); Protein, Total 7.2 g/dL (6.4-8.2); Sodium Level 138 mmol/L (136-145)
[2020-11-20 12:52] LABS: Internal QC Validated? YES +Cl - CLEAR BKGD; Pregnancy, Serum, hCG Quali. NEGATIVE Negative
== END 2020-11-20 15:06 | disposition home or self-care (01) ==
PROVIDERS: Emergency Provider Emergency Medicine
DX: K62.5 Hemorrhage of anus and rectum (principal); L91.8 Other hypertrophic disorders of the skin
CPT/HCPCS: 74177; 80053; 84703; 85025; 96360; 96361; 99283; Q9967; A4216

== ENCOUNTER → 2022-09-26 | Outpatient (CLI) | payer MEDICAID, SELFPAY ==
[2022-09-26 14:13] LABS: Hematocrit 37.9 % (37-47); Hemoglobin 11.9 g/dL (12.0-15.0); Mean Corp Hgb Conc 31.4 g/dL (32-36); Mean Corpuscular Hgb 28.5 pg (27.0-32.0); Mean Corpuscular Volume 90.7 fL (81-99); Mean Platelet Vol. 11.1 fl (6.2-12.0); Platelet Count 207 K/mm3 (150-450); RBC Distribution Width SD 46.1 fl (35.1-43.9); Red Blood Count 4.18 M/mm3 (4.2-5.4); White Blood Count 8.4 K/mm3 (4.4-11.0)
[2022-09-26 14:46] LABS: Glucose Challenge Gest 1H 50g 120 mg/dL (70-140)
[2022-09-26 15:11] LABS: Syphilis Antibodies Non-reactive
== END | disposition home or self-care (01) ==
PROVIDERS: Visit Provider Obstetrics & Gynecology
DX: Z34.83 Encounter for supervision of other normal pregnancy, third trimester (principal)
CPT/HCPCS: 36415; 82950; 85027; 86780

== ENCOUNTER → 2022-10-24 | Outpatient (CLI) | payer MEDICAID, SELFPAY ==
[2022-10-24 13:03] LABS: Absolute Lymphocyte Count 1.16 X10^3/uL (0.83-4.51); Absolute Neutrophil Count 6.1 X10^3/uL (2.0-7.7); Basophil# 0.02 X10^3/uL; Basophil% 0.2 % (0-1); Eosinophil# 0.07 X10^3/uL; Eosinophils% 0.9 % (0-5); Hematocrit 37.9 % (37-47); Hemoglobin 12.2 g/dL (12.0-15.0); Lymphocyte # 1.16 X10^3/ul (0.83-4.51); Lymphocyte % 14.4 % (19-41); Mean Corp Hgb Conc 32.2 g/dL (32-36); Mean Corpuscular Hgb 28.4 pg (27.0-32.0); Mean Corpuscular Volume 88.1 fL (81-99); Mean Platelet Vol. 11.5 fl (6.2-12.0); Monocyte# 0.61 X10^3/uL; Monocyte% 7.5 % (0-10); NRBC Flagged by Analyzer 0 % (0-5); Neutrophil # 6.14 X10^3/uL (2.7-7.7); Platelet Count 244 K/mm3 (150-450); RBC Distribution Width CV 14.5 % (11.6-14.6); RBC Distribution Width SD 45.9 fl (35.1-43.9); White Blood Count 8.1 K/mm3 (4.4-11.0)
== END | disposition home or self-care (01) ==
LOC: WOBLAB 11:27
PROVIDERS: Visit Provider Obstetrics & Gynecology
DX: Z34.83 Encounter for supervision of other normal pregnancy, third trimester (principal); Z36.85 Encounter for antenatal screening for Streptococcus B
CPT/HCPCS: 36415; 85025; 87081

== ENCOUNTER 2022-10-31 16:15 | Outpatient (CLI) | payer MEDICAID, SELFPAY ==
[2022-10-31 16:29] VITALS: PULSE 112; TEMP 37.1; O2SAT 96
[2022-10-31 16:30] VITALS: BP 132/72; PULSE 110
[2022-10-31 17:52] VITALS: BMI 43.0
--- NOTE | 2022-10-31 23:08 | OB.TRI.NOTE ---
HPI - General General Date of Service: 10/31/22 HPI Narrative ALEJANDRO AMBROSE, is a 27 F who presents with contractions PFSH PFSH Home Medications glycopyrrolate 1 mg tablet 1 mg PO TID 11/20/20 [History Last Taken Unknown] sumatriptan succinate 50 mg tablet 50 mg PO Q2H PRN Migraine Headache 11/20/20 [History Last Taken Unknown] Allergy/AdvReac Type Severity Reaction Status Date / Time No Known Allergies Allergy Verified 10/31/22 17:46 Surgical History H/O partial cystectomy Social History Smoking Status: Never smoker NST FHR Rate Baby A Baseline: 120 Variability:: Moderate Accelerations:: 15 x 15 Decelerations:: None NST Reactive:: Yes Uterine Activity:: Few contractions Assessment & Plan (1) : PLAN: Called by nursing patient with contractions at home initial cervical exam by nursing unchanged from office exam earlier today. Educated nursing to offer patient cervical exam versus okay to discharge home if comfortable, called back by nursing that patient desires repeat cervical exam. Repeat call by nursing patient now desires discharge home now not feeling contractions. Okay to discharge home and follow-up scheduled appointments
== END 2022-10-31 17:54 | disposition home or self-care (01) ==
LOC: WPOUT 16:24 → WP 16:26
PROVIDERS: Referring Provider Obstetrics & Gynecology; Visit Provider Obstetrics & Gynecology
DX: O47.9 False labor, unspecified (principal)
CPT/HCPCS: 36415; 59025; 59050; 80053; 82570; 83615; 84156; 85025; 87086; 87088

== ENCOUNTER → 2022-10-31 | Outpatient (CLI) | payer MEDICAID, SELFPAY ==
[2022-10-31 11:56] LABS: Absolute Lymphocyte Count 1.38 X10^3/uL (0.83-4.51); Absolute Neutrophil Count 6.5 X10^3/uL (2.0-7.7); Basophil# 0.03 X10^3/uL; Basophil% 0.3 % (0-1); Eosinophil# 0.08 X10^3/uL; Eosinophils% 0.9 % (0-5); Hematocrit 38.7 % (37-47); Hemoglobin 12.1 g/dL (12.0-15.0); Lymphocyte # 1.38 X10^3/ul (0.83-4.51); Lymphocyte % 15.9 % (19-41); Mean Corp Hgb Conc 31.3 g/dL (32-36); Mean Corpuscular Hgb 28.5 pg (27.0-32.0); Mean Corpuscular Volume 91.1 fL (81-99); Mean Platelet Vol. 11.4 fl (6.2-12.0); Monocyte# 0.61 X10^3/uL; NRBC Flagged by Analyzer 0 % (0-5); Neutrophil # 6.49 X10^3/uL (2.7-7.7); Neutrophil % 74.7 % (47-70); Platelet Count 210 K/mm3 (150-450); RBC Distribution Width CV 14.5 % (11.6-14.6); RBC Distribution Width SD 47.9 fl (35.1-43.9); Red Blood Count 4.25 M/mm3 (4.2-5.4); White Blood Count 8.7 K/mm3 (4.4-11.0)
[2022-10-31 12:16] LABS: ALB/GLOB Ratio 0.6 RATIO (0.9-2.4); AST(SGOT) 16 U/L (15-37); Alanine Aminotransfer ALT/SGPT 14 U/L (13-56); Albumin, Serum 2.8 g/dL (3.2-5.0); Alkaline Phosphatase 90 U/L (45-117); Anion Gap 9 (5-15); BUN 7 mg/dL (7-18); Chloride 108 mmol/L (98-107); Creatinine, Serum 0.64 mg/dL (0.55-1.02); EST Glomerular Filtration Rate 120 mL/min (>60); Est Glom Filt Rate - Afr Amer 145 mL/min (>60); Globulin 4.5 g/dL (2.2-4.2); Glucose 109 mg/dL (74-106); LDH 176 U/L (84-246); Potassium 3.8 mmol/L (3.5-5.1); Protein, Total 7.3 g/dL (6.4-8.2); Sodium Level 137 mmol/L (136-145)
[2022-10-31 12:17] LABS: Protein, Urine (Random) 9.4 mg/dL (<11.9); Protein:Creat Ratio 127 mg/g CRE (0-200)
== END | disposition home or self-care (01) ==
LOC: WOBLAB 11:31
PROVIDERS: Visit Provider Obstetrics & Gynecology
DX: Z34.83 Encounter for supervision of other normal pregnancy, third trimester (principal)
CPT/HCPCS: 36415; 80053; 82570; 83615; 84156; 85025; 87086

== ENCOUNTER 2022-11-11 06:50 | Inpatient (IN) | payer MEDICAID, SELFPAY ==
[2022-11-11] VITALS (67 sets, daily range): BP systolic 61–136; BP diastolic 38–80; PULSE 60–101; RESP 14; TEMP 36.1–37.1; O2SAT 81–100; BMI 43.0
--- NOTE | 2022-11-11 07:46 | HP.PCM.OB_ITS ---
History and Physical Date of Admission: 11/11/22 HPI: 27-year-old at 39/3, DANNY 11/16/2019 3 x 8-week ultrasound, admitted for elective induction of labor at term. Denies regular contractions, leaking of fluid, vaginal bleeding. Reports movement. Denies headache or vision changes, chest pain or shortness of breath, nausea or vomiting, diarrhea constipation, fevers or chills. 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 Ovarian cystectomies in 2013 and 2018 Medications: 1. vitamin Allergies: No known drug allergies Family history: Denies history of blood clots or bleeding disorders Social history: Denies tobacco, alcohol, drug use Review of system: Negative otherwise stated above Physical exam: Vitals pending General: No acute distress HEENT: Normal cephalic/atraumatic, PERRLA Cardiorespiratory: No increased effort Abdomen: Soft, nontender, gravid Extremities: Minimal edema Musculoskeletal: Strength out of 5 throughout all extremities Neurologic: Cranial nerves II through XII grossly intact, no focal deficits Cervical exam: Pending Fever heart rate: 125/mod onelia/+accel/no decel [place]: quiet Assessment/plan: 27-year-old at 39/3, DANNY 11/16/2019 3 x 8-week ultrasound, admitted for elective induction of labor at term. complicated by: Obesity. ?Admit for induction of labor. Pitocin and AROM. ? GBS negative ? Epidural when patient desires
[2022-11-11] MEDS: Lactated Ringers 1,000 ML 50 ML IV (09:05)
[2022-11-11 09:28] LABS: Absolute Lymphocyte Count 1.47 X10^3/uL (0.83-4.51); Absolute Neutrophil Count 6.4 X10^3/uL (2.0-7.7); Basophil# 0.03 X10^3/uL; Basophil% 0.3 % (0-1); Eosinophil# 0.08 X10^3/uL; Eosinophils% 0.9 % (0-5); Hematocrit 34.8 % (37-47); Hemoglobin 10.8 g/dL (12.0-15.0); Lymphocyte # 1.47 X10^3/ul (0.83-4.51); Lymphocyte % 16.8 % (19-41); Mean Corpuscular Hgb 28.3 pg (27.0-32.0); Mean Corpuscular Volume 91.1 fL (81-99); Mean Platelet Vol. 11.3 fl (6.2-12.0); Monocyte# 0.72 X10^3/uL; Monocyte% 8.2 % (0-10); NRBC Flagged by Analyzer 0 % (0-5); Neutrophil # 6.37 X10^3/uL (2.7-7.7); Neutrophil % 72.8 % (47-70); Platelet Count 203 K/mm3 (150-450); RBC Distribution Width CV 14.6 % (11.6-14.6); Red Blood Count 3.82 M/mm3 (4.2-5.4); White Blood Count 8.8 K/mm3 (4.4-11.0)
[2022-11-11] MEDS: Oxytocin 15 Units/NS 250ml 15 UNITS/250 ML IV.SOLN 2 UNITS IV (09:30)
[2022-11-11] MEDS: Mag Hydrox/Al Hydrox/Simeth 30 ML UDC PO ×2 (10:15→17:02)
[2022-11-11 10:18] LABS: Syphilis Antibodies Non-reactive
[2022-11-11] MEDS: LACTATED RINGERS 500 ML 999 ML IV ×3 (12:30→17:23)
[2022-11-11] MEDS: fentaNYL-bupivacaine (epidural) 100 ML BAG EPIDURAL (14:04)
[2022-11-11] MEDS: Lactated Ringers 1,000 ML 200 ML IV (17:19)
[2022-11-11] MEDS: Amnioinfusion- 0.9% NS 1,000 ML IV.SOLN. 1000 ML INTRA-UTER (17:46)
--- NOTE | 2022-11-11 19:37 | EX.PCM.OBRPT ---
Maternal Data Information Final DANNY: 11/15/22 Vaginal Delivery Operative Information Date of Procedure: 11/11/22 Pre-Operative Diagnosis: Lopez intrauterine at term Post-Operative Diagnosis: Lopez intrauterine at term Surgery / Procedure Performed: Spontaneous Vaginal Delivery Type of Anesthesia: Epidural Estimated Blood Loss: 300cc Findings Description of Procedure: Spontaneous vaginal delivery viable infant male. Nuchal cord x1, loose, delivered through. Baby to mom. Cord clamped and cut. Spontaneous delivery of placenta. Second-degree laceration repaired in the usual fashion, hemostatic. There was a slight delay in starting to push due to inadequate staffing, heart rate tracing category 1 during the period of waiting to start pushing. A Gender: Male (1 minute): 10 (5 minute): 10 Complication Complications: None
[2022-11-11] MEDS: Oxytocin 15 Units/NS 250ml 15 UNITS/250 ML IV.SOLN 83 UNITS IV (20:05)
[2022-11-11] MEDS: Ibuprofen 600 MG Tablet PO (20:14)
[2022-11-12 03:45] VITALS: BP 118/59; PULSE 87; RESP 14; TEMP 36.3
[2022-11-12] MEDS: Ibuprofen 600 MG Tablet PO ×3 (04:40→16:41)
--- NOTE | 2022-11-12 04:54 | PN.OBGYN_ITS ---
Subjective Subjective Patient doing well. Lochia minimal. Sore and tired, however pain is controlled. Breast-feeding. Objective Data Objective Data Vital Signs: Vital Signs Temp Pulse Resp BP Pulse Ox O2 Del Method 97.3 F L 87 14 118/59 L 96 Room Air 11/12/22 03:45 11/12/22 03:45 11/12/22 03:45 11/12/22 03:45 11/11/22 21:27 11/12/22 03:45 Oxygen Delivery Method Room Air Weight: 112.1 kg Body Mass Index (BMI) 43.0 Intake & Output: Intake and Output for Last 24 Hours 11/10/22 11/11/22 11/12/22 23:59 23:59 23:59 Intake Total 3257.50 / 3257.50 Output Total 1250 / 1250 Balance 50 / Lab / Micro Data Attestation: I reviewed the patient's lab results. 11/11/22 09:05 Labs: Laboratory Results - last 24 hr 11/11/22 09:05: WBC 8.8, RBC 3.82 L, Hgb 10.8 L, Hct 34.8 L, MCV 91.1, MCH 28.3, MCHC 31.0 L, RDW Std Deviation 48.0 H, RDW Coeff of Marek 14.6, Plt Count 203, MPV 11.3, Immature Gran % (Auto) 1.000 H, Neut % (Auto) 72.8 H, Lymph % (Auto) 16.8 L, [place] % (Auto) 8.2, Eos % (Auto) 0.9, Baso % (Auto) 0.3, Absolute Neuts (auto) 6.4, Absolute Lymphs (auto) 1.47, Nucleated RBC % 0, Syphilis Total Ab Non- reactive, Blood Type O POSITIVE, Antibody Screen NEGATIVE Physical Exam Const alert, oriented x3 and no apparent distress HEENT normocephalic Head and Scalp: atraumatic Neck full ROM Resp normal respiratory effort Cardio regular rate GI normal to inspection, nondistended, normoactive bowel sounds GI Narrative: Uterus 2 cm below umbilicus Back/Spine normal ROM Extremity normal to inspection Extremity Narrative: Minimal pedal edema Neuro no focal motor deficits and no sensory deficits noted Psych mental status grossly normal and affect normal Assessment & Plan (1) Vaginal delivery: PLAN: day 1 status post . Breast-feeding. Possibly desires discharge home late this evening.
--- NOTE | 2022-11-12 04:55 | DCINST_ITS ---
Discharge Instructions Diet Discharge Diet: No restrictions Activity Discharge Activity: Return to Normal Activity and May Shower May resume sexual activity in: 4-6 weeks Weight Bearing Status: Weight bearing as tolerated Lifting Restrictions: No greater than 25 pounds Dressing / Incision Call your doctor if you observe: Fever of 101 or Higher, Change in Color, Inability to urinate, Using more than 1 pad per hour, Shortness of breath, Dizziness, Swelling in the ankles, Chest pain and Calf discomfort Follow Up Care Please Follow Up With: Obdulio Parker MD When: 6-week visit Test Results: Test results from this visit will be discussed in further detail at your follow- up appointment, if applicable. Discharge Plan Admission Admit Date/Time: 11/11/22 06:50 Primary Reason for Your Visit: Vaginal delivery Attending Provider: Lorraine Parker Primary Care Provider: BERONICA MORRIS Discharge Orders/Prescriptions Prescriptions: Continued sumatriptan succinate 50 mg Tablet 50 mg PO Q2H PRN (Reason: Migraine Headache) Hold Instructions: no longer taking Discontinued glycopyrrolate 1 mg Tablet 1 mg PO TID Hold Instructions: Order Completed Referrals / Follow Up: BERONICA MORRIS [Other] Disposition Disposition (needs filled in before D/C Order can be placed): Home, Self Care
[2022-11-12 09:06] VITALS: BP 122/62; PULSE 73; RESP 16; TEMP 36.1; O2SAT 97
--- NOTE | 2022-11-12 10:53 | CASEMGMT ---
Social Work Assessment Labor and Delivery Unit Patient Address: [address] [place], [place] [address] Phone number: [phone] Date of Referral: 11/11/22 Time of Referral:? 2238 Referred By: Dr Lorraine Parker Date of Intervention: ??11/12/22 Time of Intervention:? 1000 Reason for Referral:? Anxiety, depression, PPD Sw completed chart review and acknowledges social work consult submitted due to maternal mental health history positive for anxiety, depression and PPD. Sw presented to room and introduced self to mother of baby (MOB- Yana) and father of baby (FOB- David). Sw explained reason for social work involvement, completed assessment, and provided education and support. History obtained from: medical records, MOB and FOB. ?? Household composition: Currently residing in the family home is parents, baby boy, and two older children (Sonya- 8 years old, and Perry- 6 years old) Patient's parent/guardian status: Parents report that they met in high school and have been together for 10 years. When meeting with MOB privately she denies domestic violence or intimate partner violence. Medical History: This is LANDY's fourth , third delivery. MOB states that she experienced a miscarriage in 2020 when she was a couple of months along. LANDY received routine care with [facility] throughout her . LANDY states that this is her first delivery at [place] and she is very happy with how things have gone. LANDY states that she did have some medical things in the past couple of years, she did not elude to what issues she was having. Baby boy, Foreign Wills, was born on 11/11/22 via vaginal delivery at 39 weeks gestation. Foreign weighed 7lb 7oz and his apgars were 10 and10 at one and five minutes of life respectfully. MOB states that she is working on baby. Educational Status: Both parents are high school graduates. MOB states that she has her Bachelor's degree in Creative writing and [place]. MOB states that she would like to write creatively with her degree. SCHUYLER denies college education. 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 MOB reports that she is a stay at home mom at this time. Infant Supplies:?Parents state they have been able to obtain all necessary baby items including car seat, crib, clothes, diapers and wipes. LANDY states that she has a pump for home. Childcare/Caregiver(s):? MOB states that at this time she is the primary caregiver to baby and her other children. MOB states that if she were to need assistance with childcare she would talk to her sister. Transportation:??Parents deny any transportation concerns. They have reliable transportation. Programs/Agencies Involved: ?Currently family has [employer] insurance. MOB denies any other resources provided through [facility] (no bass assistance, food stamps and no WIC). Sw discussed Help Me Grow and benefits of utilizing this resource. LANDY states that she is not familiar with this resource and has not used it in the past with her other children. Sw agreed to provdie parents with additional resources if they feel it is something they are interested in getting connected to. Children Services/Legal Issues: Parents deny history of Children Services involvement. No issues or concerns warranting referral at this time. Behavioral Health Issues: ??Mental Health History:?FOB denies mental health history. LANDY states that she has been diagnosed with anxiety, depression, PTSD and did experience depression following the of her first daughter 8 years ago. LANDY states that when she had she was anxious and would worry about things that she did not need to worry about. Malinda met with LANDY privately and had her complete the [place] Depression screen, her score was 11. Malinda explained LANDY high school and that it is recommended that LANDY get connected to community mental health supports to support her mental health and ensure she stays healthy during this period. MOB states that she does not want to be prescribed medication. ? Substance Use History:??Parents deny substance use history. Family History:???MOB states that she is not aware of any mental health history or substance use history for family members. ?? Drug Screens: No urine screens observed in chart review. ? Family/Social Stressors:? Parents deny stressors at this time. MOB states that she appreciates that sw took time to discuss mental health with her and FOB. MOB states that she feels like SCHUYLER does not have a clue how to help her when she is struggling . Sw encouraged LANDY to reach out to sw should she need any additional support and more literature on how dads can be supportive to mom's during this time. Support Systems: MOB states that their support system is limited. They are not close with either side of their family. MOB states that she has an older sister that is suppoprtive and who she talks to on a regular basis. Depression/Shaken Baby/Safe Sleeping:?Sw provided literature and education on signs and symptoms of baby blues and post depression. Sw educated parents on shaken baby prevention and ABCs of safe sleep. Parents expressed understanding of these topics discussed. ASSESSMENT:? Parents receptive to sw involvement and support provided. MOB was observed in bed and caring for baby in tender and loving way. Both parents answered sw questions asked for psychosocial assessment, however both parents have flat affect and do not elaborate with answers. MOB would benefit from ongoing support throughout admission and was strongly encouraged to get scheduled with they community mental health supports that she is familiar with. PLAN:?Sw will continue to provide support to MOB and FOB during admission. Sw available to continue to encourage mental health linkage. ?No other services requested or indicated. Jorge Luis Yanes, RELIGIOUS HEALER, PLANT UTILITY PERSON
[2022-11-12 12:17] VITALS: BP 119/58; PULSE 68; RESP 16; TEMP 35.8; O2SAT 97
[2022-11-12 16:11] VITALS: BP 107/62; PULSE 75; RESP 16; TEMP 35.8; O2SAT 97
--- NOTE | 2022-11-12 19:35 | NURSING ---
during shift change report pt expressed hat she would like to go home tonight after infants 24 hour testing. this rn called provider to inform her of pt request. provider gave telephone order to put on discharge for pt.
[2022-11-12 19:51] VITALS: BP 120/50; PULSE 76; RESP 16; TEMP 36.1; O2SAT 97
== END 2022-11-12 21:30 | disposition home or self-care (01) | DRG 560 ==
PROVIDERS: Admitting Provider Student in an Organized Health Care Education/Training Program; Referring Provider Student in an Organized Health Care Education/Training Program; Visit Provider Student in an Organized Health Care Education/Training Program
DX: O70.1 Second degree perineal laceration during delivery (principal); Z37.0 Single live birth; E66.8 Other obesity; O69.81X0 Labor and delivery complicated by cord around neck, without compression, not applicable or unspecified; Z3A.39 39 weeks gestation of pregnancy; O99.214 Obesity complicating childbirth
CPT/HCPCS: 59025; 59050; 85025; 86780; 86850; 86900; 86901; 99221; J7030; J7120; G0378